=== PATIENT | male | born 1990 | race Caucasian/White ===

== ENCOUNTER 2016-09-27 08:23 | Day surgery (SDC) | payer OTHER ==
[~2016-09-27] VITALS: Ht 182.9 cm; Wt 122.5 kg
[2016-09-27] MEDS ORDERED: SODIUM CHLORIDE 0.9% 1,000 ML IV SCH (09:07)
[2016-09-27] MEDS ORDERED: BUPIVACAINE HCL/PF 0.25% (2.5MG/ML) 10ML ONE ×3 (09:18→09:55)
[2016-09-27] MEDS ORDERED: BACITRACIN ZINC 15GM TUBE TOP ONE (09:21)
[2016-09-27] MEDS ORDERED: ONDANSETRON HCL 4MG/2ML VIAL IV PRN (09:30)
[2016-09-27] MEDS ORDERED: HYDROMORPHONE HCL/PF 2MG/ML CPJ IV PRN (09:30)
[2016-09-27] MEDS ORDERED: MIDAZOLAM HCL 2 MG/2 ML VIAL ONE (10:08)
[2016-09-27] MEDS ORDERED: FENTANYL CITRATE/PF 50MCG/ML 2ML VIAL ONE ×3 (10:09→10:41)
[2016-09-27] MEDS ORDERED: PROPOFOL 200MG/20ML VIAL IV ONE (10:09)
[2016-09-27] MEDS ORDERED: LIDOCAINE HCL 1% 20ML VIAL (Pyxis) INJ ONE (10:09)
[2016-09-27] MEDS ORDERED: METOCLOPRAMIDE HCL 10MG/2ML VIAL ONE (10:26)
[2016-09-27] MEDS ORDERED: CEFAZOLIN SODIUM 1000MG/VIAL ONE (10:26)
[2016-09-27] MEDS ORDERED: ONDANSETRON HCL 4MG/2ML VIAL ONE (10:27)
[2016-09-27] MEDS: FENTANYL CITRATE/PF 50MCG/ML 2ML VIAL IV PRN ×2 (12:12→12:21)
[2016-09-27 12:21] VITALS: BP 136/85
== END 2016-09-27 14:00 | disposition home or self-care (01) ==
LOC: OR 08:23
PROVIDERS: ATTEND Urology
DX: N47.1 Phimosis (principal); E11.9 Type 2 diabetes mellitus without complications
CPT/HCPCS: 54161; 82962; 88304; J0690; J2250; J2405; J2765; J3010; J3490; J7030; J2704

== ENCOUNTER 2019-10-01 16:39 | Emergency (ER) | payer BC, OTHER ==
[~2019-10-01] VITALS: Ht 180.3 cm; Wt 62.0 kg
[2019-10-01] MEDS ORDERED: KETOROLAC 60MG/2ML VIAL IM ONE (19:00)
[2019-10-01 21:23] VITALS: BP 120/82
== END 2019-10-01 21:24 | disposition home or self-care (01) ==
LOC: ER 16:39
DX: J06.9 Acute upper respiratory infection, unspecified (principal); I51.7 Cardiomegaly
CPT/HCPCS: 71045; 93005; 96372; 99283; J1885